=== PATIENT | male | born 1960 | race Caucasian/White ===

== ENCOUNTER 2020-11-24 13:59 | Inpatient (IN) | payer OTHER ==
[~2020-11-24] VITALS: Ht 182.9 cm; Wt 117.9 kg
--- NOTE | 2020-11-24 14:00 | NUR ---
Pt BIB by RA Velasquez, Dr. Maradiaga at bedside for MSE.
[2020-11-24] MEDS ORDERED: CARB200T PO (14:18)
[2020-11-24] MEDS ORDERED: LAMO5TAB3 PO (14:18)
[2020-11-24 14:23] LABS: BASOPHILS # (AUTO) 0.1 K/uL (0.0-8.0); BASOPHILS % (AUTO) 1.2 % (0.0-2.0); EOSINOPHILS # (AUTO) 0.1 K/uL (0.0-0.7); HEMATOCRIT 37.9 % (36.7-47.1); HEMOGLOBIN 12.8 g/dL (12.5-16.3); LYMPHOCYTES # (AUTO) 1.5 K/uL (20.0-40.0); LYMPHOCYTES % (AUTO) 20.8 % (20.5-51.5); MEAN CORPUSCULAR HEMOGLOBIN 31.6 uug (23.8-33.4); MEAN CORPUSCULAR HGB CONC 34 g/dL (32.5-36.3); MEAN CORPUSCULAR VOLUME 93.6 fL (73.0-96.2); MONOCYTES # (AUTO) 0.6 K/uL (2.0-10.0); MONOCYTES % (AUTO) 8.9 % (0.0-11.0); NEUTROPHILS # (AUTO) 4.8 K/uL (1.8-8.9); NEUTROPHILS % (AUTO) 67.1 % (38.5-71.5); PLATELET COUNT (AUTO) 195 K/uL (152-348); RED BLOOD CELL COUNT(AUTO) 4.05 MIL/uL (4.06-5.63); WHITE BLOOD COUNT (AUTO) 7.2 K/uL (3.6-10.2)
[2020-11-24 14:48] LABS: ETHANOL < 3 MG/DL (0-0)
[2020-11-24 14:50] LABS: CARBON DIOXIDE 27 mmol/L (21-32); CHLORIDE 101 mmol/L (98-107); CREATININE 1.1 mg/dL (0.6-1.3); GLUCOSE 117 mg/dL (74-106); UREA NITROGEN, BLOOD 20 mg/dL (7-18)
[2020-11-24 14:56] LABS: ALANINE AMINOTRANSFERASE 40 U/L (16-63); ALKALINE PHOSPHATASE 85 U/L (50-136); ASPARTATE AMINOTRANSFERASE 24 U/L (15-37); BILIRUBIN,DIRECT 0.1 mg/dL (0.0-0.2); BILIRUBIN,TOTAL 0.2 mg/dL (0.2-1.0); TOTAL PROTEIN, SERUM 7.3 g/dL (6.4-8.2)
[2020-11-24 15:00] LABS: PHENYTOIN (DILANTIN) < 0.5 ug/mL (10.0-20.0); VALPROIC ACID < 3 ug/mL (50-100)
[2020-11-24] MEDS ORDERED: levETIRAcetam IV 500 MG in IV DEXTROSE 5% 100 ML IV ONE (15:00)
--- NOTE | 2020-11-24 15:15 | NUR ---
Dr. Maradiaga s/w Yu Herrera ACCOUNTS PAYABLE MANAGER and Dr. Smith about CT scan results that radiologist called her for. Eugene Her[facility] is also accepting pt for [facility] admission, insurance is being contacted at this time. Dx: Subdural Hematoma, unstable for transfer.
--- NOTE | 2020-11-24 15:34 | NUR ---
3rd floor notified of possible [facility] admission.
--- NOTE | 2020-11-24 15:40 | NUR ---
Patria DILLARD called back and informed her that per Dr. Maradiaga, pt is going to [facility].
--- NOTE | 2020-11-24 16:13 | NUR ---
Dr Maradiaga s/w [facility] PET Team.
--- NOTE | 2020-11-24 16:30 | NUR ---
Report given to Tabby DILLARD.
--- NOTE | 2020-11-24 16:44 | NUR ---
report received from Luciano DILLARD. Patient will be going to CCU2 as [facility] status
--- NOTE | 2020-11-24 16:45 | NUR ---
S/w Jacinta - Instructor, [facility] (assists patient with daily tasks). [phone]. She was able to convince patient to stay.
[2020-11-24] MEDS ORDERED: SERT50TA PO (17:19)
[2020-11-24] MEDS ORDERED: HALO5TAB PO (17:19)
[2020-11-24] MEDS ORDERED: BENA10TA74 PO (17:19)
[2020-11-24] MEDS ORDERED: LAMO200T10 PO (17:22)
--- NOTE | 2020-11-24 17:22 | NUR ---
Called back Jacinta as agreed, and she provided the list of medications. Pt is now ready to go upstairs, belongings list completed. Pt requested to have dinner prior to transfer. Dinner tray provided, aspiration precautions in place. RN monitoring patient. Addendum: 11/24/20 at 1730 by AELIGIShantel Pt's primary doctor is Gely Sanchez; Neurologist is: Dora Reyna
--- NOTE | 2020-11-24 17:28 | NUR ---
Notified CCU that pt will be provided dinner and then sent upstairs.
[2020-11-24] MEDS ORDERED: MAGNESIUM HYDROXIDE 30 ML LIQUID UDC PO PRN (17:45)
[2020-11-24] MEDS ORDERED: ACETAMINOPHEN 325 MG TABLET PO PRN (17:45)
[2020-11-24] MEDS ORDERED: TEMAZEPAM 15 MG CAPSULE PO PRN (17:45)
[2020-11-24] MEDS ORDERED: ONDANSETRON 4 MG/2 ML VIAL IV PRN (17:45)
[2020-11-24] MEDS ORDERED: Z GUARD REMEDY PASTE 57 GM TUBE TOP PRN (17:45)
[2020-11-24] MEDS ORDERED: HYDROCODONE/APAP 5-325MG TABLET PO PRN (17:45)
--- NOTE | 2020-11-24 18:04 | NUR ---
Transfered to CCU - 2 in steady condition via gurney. Pt able to ambulate from gurney to bed.
--- NOTE | 2020-11-24 18:10 | NUR ---
Received pt. from E.R. accompanied by primary R.N. transported via gurney. Patient AAOx2. able to transfer self to bed with minimal assistance. At times pt. with unsteady gait. IV line to RFA patent and Hl. Patient received in RA with saturation of 99%. Afebrile 98.3. Hemodynamically stable HR of 62, sbp of 145/87. Will continue with care plan and will endorse to incoming shift.
[2020-11-24 18:17] VITALS: BP 145/87
[2020-11-24 19:00] VITALS: BP 139/81
--- NOTE | 2020-11-24 19:05 | NUR ---
Received patient in bed awake. Patient is A/Ox2, occasionally forgetting he is in the hospital, but able to recall his name and time. Patient is child-like with a slight delayed response, however this is reported to be his baseline due to previous traumatic brain injury. Patient is independently moving in bed and able to use a urinal. Neuro assessment Q2H for suspected subdural hematoma. Plans for repeat head CT in the AM. No complaints of pain, no signs of distress. Vital Signs stable, though Heart rate is in the low 60s and can occasionally be alie in the high 50s, asymptomatic, most likely his baseline heart rate at rest. Was able to discuss plan of care with the patient, and he was able to verbalize understanding. He requests his evening medications, however I explained that the admitting doctor from the hospital will be ordering his medication and I will get those to him as soon as I can, he verbalized understanding. Neurologically he seems to be rather intact and able to understand most concepts regarding his hospitalization and care. No neurological deficits in his facial expressions or his extremities. Seizure precautions, bed rails up w/ pads, bed alarm on, bed in lowest position.
[2020-11-24 20:00] VITALS: BP 139/91
[2020-11-24] MEDS ORDERED: HALOPERIDOL 5 MG TABLET ONE (20:59)
[2020-11-24 21:00] VITALS: BP 141/84
[2020-11-24] MEDS: SERTRALINE HCL 50 MG TABLET PO SCH (21:04)
[2020-11-24] MEDS: HALOPERIDOL 5 MG TABLET PO SCH (21:04)
[2020-11-24 22:00] VITALS: BP 129/73
[2020-11-24 23:00] VITALS: BP 138/76
[2020-11-25] VITALS (23 sets, daily range): BP systolic 108–147; BP diastolic 39–114
[2020-11-25 05:09] LABS: BASOPHILS # (AUTO) 0.1 K/uL (0.0-8.0); BASOPHILS % (AUTO) 0.8 % (0.0-2.0); EOSINOPHILS # (AUTO) 0.1 K/uL (0.0-0.7); EOSINOPHILS % (AUTO) 1.5 % (0.0-7.0); HEMATOCRIT 37.9 % (36.7-47.1); HEMOGLOBIN 12.5 g/dL (12.5-16.3); LYMPHOCYTES # (AUTO) 1.1 K/uL (20.0-40.0); LYMPHOCYTES % (AUTO) 15.5 % (20.5-51.5); MEAN CORPUSCULAR HEMOGLOBIN 31.2 uug (23.8-33.4); MEAN CORPUSCULAR HGB CONC 33 g/dL (32.5-36.3); MEAN CORPUSCULAR VOLUME 94.4 fL (73.0-96.2); MONOCYTES # (AUTO) 0.5 K/uL (2.0-10.0); NEUTROPHILS # (AUTO) 5.4 K/uL (1.8-8.9); NEUTROPHILS % (AUTO) 75.2 % (38.5-71.5); PLATELET COUNT (AUTO) 184 K/uL (152-348); RED BLOOD CELL COUNT(AUTO) 4.01 MIL/uL (4.06-5.63); WHITE BLOOD COUNT (AUTO) 7.2 K/uL (3.6-10.2)
[2020-11-25 05:25] LABS: CREATININE 1.1 mg/dL (0.6-1.3); MAGNESIUM 2.1 mg/dL (1.8-2.4); POTASSIUM 4.4 mmol/L (3.5-5.1)
[2020-11-25] MEDS: PANTOPRAZOLE SODIUM 40 MG TABLET.DR PO SCH (06:32)
[2020-11-25] MEDS: CARBAMAZEPINE 200 MG TABLET PO SCH ×2 (08:03→16:51)
[2020-11-25] MEDS: LAMOTRIGINE 200 MG TABLET PO SCH ×2 (08:03→16:51)
[2020-11-25] MEDS: BENAZEPRIL HCL 10 MG TABLET PO SCH (08:03)
--- NOTE | 2020-11-25 09:24 | NUR ---
Attending Tabitha Herrera in the unit to see and examine pt. report given. Orders received see order hx.
--- NOTE | 2020-11-25 16:20 | NUR ---
Energy Systems Laboratory Director Consultation: 3:50pm: Energy Systems Laboratory Director consultation requested for assessing living arrangements/discharge planning. SW met with this patient at bedside, in CCU. Patient is a 60 year old male, who was brought to the ED by paramedics after bystanders saw him running in traffic and called 911. Patient has a hx of traumatic brain injury. Patient is a client of the [facility]. Patient is awake and alert, watching TV. Patient is receptive to meeting with this SW and appropriately engaged in dialogue. Patient lives alone in an apartment, and is frequently visited by his [facility] block and case maker Celi. Patient reports that he has pre-made foods delivered to him at home, which he then heats up to eat. Patient is ambulatory and able to tend to his basic ADL's. Patient has a brother, a sister, a niece, and a cousin who live in [place], but he was unable to provide contact information. KENDRA will follow-up with [facility] and case maker Celi, , to discuss discharge plans and supportive services. Addendum: 11/25/20 at 1634 by ORIANA GARDNER Correction: Celi, or [phone].
--- NOTE | 2020-11-25 16:57 | NUR ---
Type Photography Supervisor Note: This SW called Celi, [facility] worker, . Celi was available and willing to speak with this SW. Celi stated that she is the patient's [facility] ILS worker ([employer]). Celi stated that patient lives alone, and is particular about having his independence, however she visits him 1-3 x week, depending on patient's needs. Patient uses [employer] for transportation when going on outings, such as to [employer] and to doctor's appointments. Celi stated that she accompanies the patient to his doctor's appointments. Celi did not express any safety concerns about the patient, as she is in frequent contact with him, however stated that patient was going to [place] yesterday when he may have had a seizure that caused him to get confused and walk in traffic. Celi stated that patient always wears his helmet due to seizure activity. Discharge plans discussed and Celi stated that patient will be returning home, and patient will continue to receive supportive services through [facility]. Due to [facility] policy, Celi stated that she is not able to transport patient in her own car, however patient has his [employer] card with him, and it can be used to schedule a ride when patient is ready for discharge. SW to informed case management. At this time, no further SS interventions are needed, however this SW will continue to remain available to assist with continuity of care coordination, as needed.
--- NOTE | 2020-11-25 19:05 | NUR ---
Received patient in bed awake and watching TV. Patient remains A/Ox3, mentation remains the same with child-like demeanor. Patient remains aware of his condition and plan of care. Sinus rhythm to Sinus Pedro Luis on the monitor, BP remains stable, 99-100% on room air. Patient was seen by Physical therapy today, and showed slight knee wobble, unclear if this is his baseline, however completed gait training without LOB.
[2020-11-25] MEDS: ATORVASTATIN 10 MG TABLET PO SCH (20:32)
[2020-11-25] MEDS: HALOPERIDOL 5 MG TABLET PO SCH (20:32)
[2020-11-25] MEDS: SERTRALINE HCL 50 MG TABLET PO SCH (20:32)
[2020-11-26] VITALS (15 sets, daily range): BP systolic 93–148; BP diastolic 49–116
[2020-11-26 05:06] LABS: BASOPHILS % (AUTO) 0.6 % (0.0-2.0); EOSINOPHILS # (AUTO) 0.2 K/uL (0.0-0.7); EOSINOPHILS % (AUTO) 2.5 % (0.0-7.0); HEMATOCRIT 39.4 % (36.7-47.1); HEMOGLOBIN 13.2 g/dL (12.5-16.3); LYMPHOCYTES # (AUTO) 1.3 K/uL (20.0-40.0); LYMPHOCYTES % (AUTO) 17.9 % (20.5-51.5); MEAN CORPUSCULAR HEMOGLOBIN 31.4 uug (23.8-33.4); MEAN CORPUSCULAR HGB CONC 34 g/dL (32.5-36.3); MEAN CORPUSCULAR VOLUME 93.5 fL (73.0-96.2); MONOCYTES # (AUTO) 0.6 K/uL (2.0-10.0); MONOCYTES % (AUTO) 8.1 % (0.0-11.0); NEUTROPHILS # (AUTO) 5.2 K/uL (1.8-8.9); NEUTROPHILS % (AUTO) 70.9 % (38.5-71.5); PLATELET COUNT (AUTO) 178 K/uL (152-348); RED BLOOD CELL COUNT(AUTO) 4.21 MIL/uL (4.06-5.63); WHITE BLOOD COUNT (AUTO) 7.3 K/uL (3.6-10.2)
[2020-11-26 05:16] LABS: CREATININE 1.1 mg/dL (0.6-1.3); MAGNESIUM 2.1 mg/dL (1.8-2.4); POTASSIUM 4.4 mmol/L (3.5-5.1)
[2020-11-26] MEDS: PANTOPRAZOLE SODIUM 40 MG TABLET.DR PO SCH (06:41)
--- NOTE | 2020-11-26 07:35 | NUR ---
received pt in bed, awake and able to make needs known. pt sinus alie on the monitor with HR in the 50s. pt on room air. A&Ox3 with history of mental delay. uses urinal at bedside. no complaints at this time
[2020-11-26] MEDS: CARBAMAZEPINE 200 MG TABLET PO SCH (08:13)
[2020-11-26] MEDS: LAMOTRIGINE 200 MG TABLET PO SCH (08:13)
[2020-11-26] MEDS: BENAZEPRIL HCL 10 MG TABLET PO SCH ×2 (08:13→08:16)
--- NOTE | 2020-11-26 08:45 | NUR ---
Dr. Markus Serrato in the unit to see and assess pt. full report given. per provider, pt is okay to downgrade to Tele
--- NOTE | 2020-11-26 10:30 | NUR ---
PT in the unit to work with pt. pt ambulated with PT
--- NOTE | 2020-11-26 19:00 | NUR ---
received patient awake , able to follow command , on room air , continent , of urine and bowel , 20 ga , hl on the right hand intact , no distress
--- NOTE | 2020-11-26 19:11 | NUR ---
shift report given to shift manager RN. VSS stable. pt alert, awake and able to make needs known. mostly sinus alie with HR in the 50s when relaxed in bed, NSR when awake and moving. pt on room air. no episodes of seizures noted during shift. pt uses urinal for voiding. independent with bed mobility. refuses to wear SCD for DVT prevention.
[2020-11-26] MEDS: HALOPERIDOL 5 MG TABLET PO SCH (20:37)
[2020-11-26] MEDS: ATORVASTATIN 10 MG TABLET PO SCH (20:37)
[2020-11-26] MEDS ORDERED: LAMOTRIGINE 100 MG TABLET PO SCH (21:00)
[2020-11-26] MEDS ORDERED: CARBAMAZEPINE 200 MG TABLET PO SCH (21:00)
--- NOTE | 2020-11-26 21:00 | NUR ---
no seizure noted , refused scd;s
[2020-11-26] MEDS: SERTRALINE HCL 50 MG TABLET PO SCH (21:42)
[2020-11-27] VITALS: BP 117/74
[2020-11-27 02:00] VITALS: BP 120/80
[2020-11-27 04:00] VITALS: BP 143/81
--- NOTE | 2020-11-27 04:30 | NUR ---
refused am labs despite explanations of impotance
[2020-11-27 05:58] VITALS: BP 153/83
[2020-11-27] MEDS: PANTOPRAZOLE SODIUM 40 MG TABLET.DR PO SCH (06:13)
--- NOTE | 2020-11-27 06:16 | NUR ---
patient is awake , able to follow command , no seizure noted , on RA, iv intact on the right hand , , continent, , denies distress
--- NOTE | 2020-11-27 07:15 | NUR ---
Received report from shift mechanic nurse, patient in bed awake, no distress noted at this time, sitting at bedside. Patient is sinus rhythm on the monitor, Room air saturation 95%, Hemodynamically stable. Bed in low position, side rails up x2. Call light in reach, all alarms checked.
[2020-11-27 07:30] VITALS: BP 140/80
[2020-11-27 07:43] LABS: BASOPHILS # (AUTO) 0.1 K/uL (0.0-8.0); BASOPHILS % (AUTO) 0.7 % (0.0-2.0); EOSINOPHILS # (AUTO) 0.2 K/uL (0.0-0.7); EOSINOPHILS % (AUTO) 2.1 % (0.0-7.0); HEMATOCRIT 40.9 % (36.7-47.1); HEMOGLOBIN 13.9 g/dL (12.5-16.3); LYMPHOCYTES # (AUTO) 1.3 K/uL (20.0-40.0); LYMPHOCYTES % (AUTO) 16.3 % (20.5-51.5); MEAN CORPUSCULAR HGB CONC 34 g/dL (32.5-36.3); MEAN CORPUSCULAR VOLUME 94.5 fL (73.0-96.2); MONOCYTES # (AUTO) 0.6 K/uL (2.0-10.0); MONOCYTES % (AUTO) 7.6 % (0.0-11.0); NEUTROPHILS # (AUTO) 5.9 K/uL (1.8-8.9); NEUTROPHILS % (AUTO) 73.3 % (38.5-71.5); PLATELET COUNT (AUTO) 203 K/uL (152-348); RED BLOOD CELL COUNT(AUTO) 4.33 MIL/uL (4.06-5.63); WHITE BLOOD COUNT (AUTO) 8.1 K/uL (3.6-10.2)
[2020-11-27 07:51] LABS: CREATININE 1.1 mg/dL (0.6-1.3); MAGNESIUM 2.2 mg/dL (1.8-2.4); PHOSPHOROUS 3.1 mg/dL (2.5-4.9); POTASSIUM 4.5 mmol/L (3.5-5.1)
[2020-11-27] MEDS: BENAZEPRIL HCL 10 MG TABLET PO SCH (08:14)
[2020-11-27] MEDS ORDERED: LAMOTRIGINE 200 MG TABLET PO SCH (09:00)
[2020-11-27] MEDS ORDERED: CARBAMAZEPINE 200 MG TABLET PO SCH (09:00)
[2020-11-27] MEDS ORDERED: LAMO200T2 PO (10:31)
[2020-11-27] MEDS ORDERED: CARB200T8 PO ×2 (10:31)
[2020-11-27] MEDS ORDERED: LAMO100T2 PO (10:31)
[2020-11-27 11:18] VITALS: BP 136/82
--- NOTE | 2020-11-27 11:52 | NUR ---
Patient given discharge instructions, IV removed from wrist. Faxed patients prescriptions to his preferred pharmacy as indicated by patient. All belongings and money accounted for, belongings list signed. Patients guardian stated that Priya is to transport him back home and to pharmacy if needed Phone number [phone]. Priya acknowledge picker time between 1130am and 1200pm. Patient waiting for pickup.
--- NOTE | 2020-11-27 12:28 | NUR ---
Patient taken to discharge area where he was met by tristin Powers. She was instructed to cloth picker prescriptions from pharmacy that prescriptions were sent to prior to drop off at home.
== END 2020-11-27 12:25 | disposition home or self-care (01) | DRG 65 ==
LOC: ER 14:03 → CCU 17:07
PROVIDERS: ADMIT Nurse Practitioner Family; ATTEND Hospitalist
DX: I62.01 Nontraumatic acute subdural hemorrhage (principal); E87.1 Hypo-osmolality and hyponatremia; I10 Essential (primary) hypertension; Z87.820 Personal history of traumatic brain injury; R56.9 Unspecified convulsions; Z20.822 Contact with and (suspected) exposure to COVID-19; V89.2XXS Person injured in unspecified motor-vehicle accident, traffic, sequela; R79.89 Other specified abnormal findings of blood chemistry
CPT/HCPCS: 36415; 70450; 71045; 80164; 83735; 84100; 85025; 93005; A4663; G0378; G0480; J1953; J7060